=== PATIENT | female | born 1985 | race Two or more races ===

== ENCOUNTER 2019-04-01 13:28 | Emergency (ER) | payer MEDICAID ==
[~2019-04-01] VITALS: Ht 152.4 cm; Wt 90.7 kg
--- NOTE | 2019-04-01 13:50 | NUR ---
ED Nurse Note: PT WALKED IN TO ER TODAY FROM HOME. AOX4. PT STATES SHE IS 5 WEEKS WHICH WAS CONFIRMED BY PT'S OB, DR. WONG. PT STATES LMP WAS SOMETIME IN FEBRUARY BUT IS UNSURE OF THE EXACT DATE. PT C/O LOWER ABDOMINAL CRAMPING, PAIN 6/10 WELL VAGINAL SPOTTING X THIS AM. PT DENIES CLOTS.
--- NOTE | 2019-04-01 13:58 | Emergency Room Report ---
History of Present Illness General Chief Complaint: Complications Source: Patient Present Illness HPI 33-year-old female , A1, presents with 5 weeks of now with vaginal spotting prior to arrival, she endorses moderate abdominal cramps that come and go, no aggravating leaving factors, no shortness of breath, she does feel some nausea, no vomiting, patient presents for evaluation. She does not know her blood type, she sees an PSYCHOTHERAPIST she had a 4-week ultrasound that showed a . Allergies: Coded Allergies: No Known Allergies (Unverified , 04/01/19) Patient History Past Medical History: see triage record Last Menstrual Period: 02/21/19 Now: Yes Reviewed Nursing Documentation: PMH: Agreed; PSxH: Agreed Nursing Documentation-PMH Past Medical History: No History, Except For Hx Asthma: Yes Review of Systems All Other Systems: negative except mentioned in HPI Physical Exam Vital Signs Date Time Temp Pulse Resp B/P (MAP) Pulse Ox O2 Delivery O2 Flow Rate FiO2 04/01/19 13:40 98.4 82 18 113/73 (86) 96 Room Air Sp02 EP Interpretation: reviewed, normal General Appearance: well appearing, no apparent distress, alert Head: normocephalic, atraumatic Eyes: bilateral eye PERRL, bilateral eye EOMI ENT: uvula midline, moist mucus membranes Neck: supple, thyroid normal, supple/symm/no masses Respiratory: lungs clear, no respiratory distress, no retraction, no accessory muscle use Cardiovascular #1: normal peripheral pulses, regular rate, rhythm, no edema, no gallop, no murmur Gastrointestinal: non tender, soft, no guarding, no rebound Musculoskeletal: normal inspection Neurologic: alert, oriented x3 Psychiatric: mood/affect normal Skin: no rash, warm/dry Medical Decision Making Diagnostic Impression: Primary Impression: Complication of Additional Impression: UTI (urinary tract infection) in in first trimester ER Course Patient With vaginal spotting, possible ectopic versus implantation bleeding, labs unremarkable, ultrasound unremarkable, patient in no acute distress, patient was given cephalexin for UTI, return precautions were discussed, follow- up with PSYCHOTHERAPIST She is O+ for blood type, no indications for RhoGam Laboratory Tests Test 04/01/19 14:14 04/01/19 15:00 Urine Color Yellow Urine Appearance Slightly cloudy Urine pH 6 (4.5-8.0) Urine Specific [place] 1.020 (1.005-1.035) Urine Protein 1+ (NEGATIVE) H Urine Glucose (UA) Negative (NEGATIVE) Urine Ketones Negative (NEGATIVE) Urine Blood 2+ (NEGATIVE) H Urine Nitrite Negative (NEGATIVE) Urine Bilirubin Negative (NEGATIVE) Urine Urobilinogen Normal MG/DL (0.0-1.0) Urine Leukocyte Esterase 3+ (NEGATIVE) H Urine RBC 2-4 /HPF (0 - 2) H Urine WBC 5-10 /HPF (0 - 2) H Urine Squamous Epithelial Cells Few /LPF (NONE/OCC) Urine Bacteria Moderate /HPF (NONE) H Urine Mucus Moderate /LPF (NONE/OCC) H White Blood Count 12.8 K/UL (4.8-10.8) H Red Blood Count 4.55 M/UL (4.20-5.40) Hemoglobin 13.9 G/DL (12.0-16.0) Hematocrit 39.2 % (37.0-47.0) Mean Corpuscular Volume 86 FL (80-99) Mean Corpuscular Hemoglobin 30.5 PG (27.0-31.0) Mean Corpuscular Hemoglobin Concent 35.5 G/DL (32.0-36.0) Red Cell Distribution Width 10.7 % (11.6-14.8) L Platelet Count 323 K/UL (150-450) Mean Platelet Volume 5.5 FL (6.5-10.1) L Neutrophils (%) (Auto) 68.9 % (45.0-75.0) Lymphocytes (%) (Auto) 24.2 % (20.0-45.0) Monocytes (%) (Auto) 5.7 % (1.0-10.0) Eosinophils (%) (Auto) 0.7 % (0.0-3.0) Basophils (%) (Auto) 0.5 % (0.0-2.0) Prothrombin Time 10.0 SEC (9.30-11.50) Prothrombin Time INR 0.9 (0.9-1.1) PTT 30 SEC (23-33) Sodium Level 136 MMOL/L (136-145) Potassium Level 3.9 MMOL/L (3.5-5.1) Chloride Level 102 MMOL/L (98-107) Carbon Dioxide Level 22 MMOL/L (21-32) Anion Gap 12 mmol/L (5-15) Blood Urea Nitrogen 12 mg/dL (7-18) Creatinine 0.6 MG/DL (0.55-1.30) Estimate Glomerular Filtration Rate > 60 mL/min (>60) Glucose Level 73 MG/DL (74-106) L Calcium Level 9.0 MG/DL (8.5-10.1) Total Bilirubin 0.3 MG/DL (0.2-1.0) Aspartate Amino Transferase (AST) 18 U/L (15-37) Alanine Aminotransferase (ALT) 19 U/L (12-78) Alkaline Phosphatase 63 U/L (46-116) Total Protein 8.2 G/DL (6.4-8.2) Albumin 3.5 G/DL (3.4-5.0) Globulin 4.7 g/dL Albumin/Globulin Ratio 0.7 (1.0-2.7) L Lipase 180 U/L (73-393) Human Chorionic Gonadotropin, Quant 29098 mIU/mL (1-6) H CT/MRI/US Diagnostic Results CT/MRI/US Diagnostic Results : Impression Procedure: US OB 1st Trimester Indication: Pelvic pain and light vaginal bleeding, positive test Technique: Transabdominal and transvaginal images of the pelvis. Doppler interrogation of the bilateral ovaries Comparison: none Findings: The uterus measures 10.5 cm in length by 4.8 cm AP. Within the endometrium, there is a gestational sac. This demonstrates a pole with a crown-rump length of 9 mm, corresponding to an estimated gestational age of 6 weeks 6 days. There is positive heart activity, heart rate 150 bpm. No subchorionic hemorrhage demonstrated. No myometrial abnormality. The left ovary measures 2.5 cm in length. The right ovary measures 3.1 cm in length. Both ovaries demonstrate normal flow signal on Doppler imaging There are small cervical nabothian cysts incidentally noted. No free cul-de-sac fluid Impression: 6 weeks 6 days, by crown-rump length measurement, single live intrauterine . No unusual features Cervical nabothian cysts incidentally noted Negative for adnexal mass Dictated By: Javi Vergara MD Electronically Signed By: Javi Vergara MD Signed Date/Time 04/01/19 0681 CC: Lefty Villafana MD Last Vital Signs Date Time Temp Pulse Resp B/P (MAP) Pulse Ox O2 Delivery O2 Flow Rate FiO2 04/01/19 13:40 98.4 82 18 113/73 (86) 96 Room Air Disposition: HOME, SELF-CARE Condition: Stable Scripts Cephalexin* (CEPHALEXIN*) 500 Mg Tablet 500 MG ORAL EVERY 6 HOURS, #40 CAP Prov: Lefty Villafana MD 04/01/19 Referrals: [facility] Patient Instructions: and Urinary Tract Infection Additional Instructions: The patient was provided with discharge instructions, notified to follow-up with a primary care doctor and or specialist in the next 24-48 hours, and to return to the ED if they have worsening of their symptoms. Please note that this report is being documented using [employer] technology. This can lead to erroneous entry secondary to incorrect interpretation by the dictating instrument. Lefty Villafana MD Apr 01, 2019 13:58
--- NOTE | 2019-04-01 14:10 | NUR ---
ED Nurse Note: PT DOWN TO US.
[2019-04-01 14:44] LABS: APPEARANCE,URINE SLIGHTLY CLOUDY; BILIRUBIN, URINE NEGATIVE (NEGATIVE); COLOR,URINE YELLOW; GLUCOSE, URINE (UA) NEGATIVE (NEGATIVE); KETONES,URINE NEGATIVE (NEGATIVE); LEUKOCYTE ESTERASE ,URINE 3+ (NEGATIVE); NITRITE,URINE NEGATIVE (NEGATIVE); PH,URINE 6 (4.5-8.0); PROTEIN,URINE 1+ (NEGATIVE); UROBILINOGEN,URINE NORMAL MG/DL (0.0-1.0)
[2019-04-01 15:25] LABS: BASOPHILS % (AUTO) 0.5 % (0.0-2.0); EOSINOPHILS % (AUTO) 0.7 % (0.0-3.0); HEMATOCRIT 39.2 % (37.0-47.0); HEMOGLOBIN 13.9 G/DL (12.0-16.0); LYMPHOCYTES % (AUTO) 24.2 % (20.0-45.0); MEAN CORPUSCULAR VOLUME 86 FL (80-99); MONOCYTES % (AUTO) 5.7 % (1.0-10.0); NEUTROPHILS % (AUTO) 68.9 % (45.0-75.0); PLATELET COUNT 323 K/UL (150-450); RED BLOOD COUNT 4.55 M/UL (4.20-5.40); RED CELL DISTRIBUTION WIDTH 10.7 % (11.6-14.8); WHITE BLOOD COUNT 12.8 K/UL (4.8-10.8)
[2019-04-01 15:29] LABS: INR 0.9 (0.9-1.1)
[2019-04-01 15:34] LABS: ANION GAP 12 mmol/L (5-15); BLOOD UREA NITROGEN 12 mg/dL (7-18); CARBON DIOXIDE 22 MMOL/L (21-32); CHLORIDE 102 MMOL/L (98-107); CREATININE 0.6 MG/DL (0.55-1.30); POTASSIUM 3.9 MMOL/L (3.5-5.1); SODIUM 136 MMOL/L (136-145)
[2019-04-01 15:38] LABS: ALANINE AMINOTRANSFERASE 19 U/L (12-78); ALBUMIN 3.5 G/DL (3.4-5.0); ALBUMIN/GLOBULIN RATIO 0.7 (1.0-2.7); ALKALINE PHOSPHATASE 63 U/L (46-116); ASPARTATE AMINO TRANSFERASE 18 U/L (15-37); BILIRUBIN,TOTAL 0.3 MG/DL (0.2-1.0)
[2019-04-01] MEDS ORDERED: cefTRIAXone 1 GM in NS 55 ML IVPB ONE (16:30)
--- NOTE | 2019-04-01 16:56 | Diagnostic Imaging Report ---
Indication: Pelvic pain and light vaginal bleeding, positive test Technique: Transabdominal and transvaginal images of the pelvis. Doppler interrogation of the bilateral ovaries Comparison: none Findings: The uterus measures 10.5 cm in length by 4.8 cm AP. Within the endometrium, there is a gestational sac. This demonstrates a pole with a crown-rump length of 9 mm, corresponding to an estimated gestational age of 6 weeks 6 days. There is positive heart activity, heart rate 150 bpm. No subchorionic hemorrhage demonstrated. No myometrial abnormality. The left ovary measures 2.5 cm in length. The right ovary measures 3.1 cm in length. Both ovaries demonstrate normal flow signal on Doppler imaging There are small cervical nabothian cysts incidentally noted. No free cul-de-sac fluid Impression: 6 weeks 6 days, by crown-rump length measurement, single live intrauterine . No unusual features Cervical nabothian cysts incidentally noted Negative for adnexal mass
[2019-04-01] MEDS ORDERED: CEPHALEXIN500 M1 ORAL (17:36)
--- NOTE | 2019-04-01 17:38 | NUR ---
ED Nurse Note: PT LAYING PEACEFULLY IN BED IN NAD. AOX4. PRESCRIPTION AND DISCHARGE PAPERWORK EXPLAINED TO PT. PT VERBALIZES UNDERSTANDING AND ALL QUESTIONS ANSWERED. PRESCRIPTION AND DISCHARGE PAPERWORK GIVEN TO PT, IV AND ID WRISTBAND REMOVED. PT WALKED OUT OF ER WITH STEADY GAIT AND ALL BELONGINGS.
[2019-04-01 17:40] VITALS: BP 118/74
== END 2019-04-01 17:41 | disposition home or self-care (01) ==
LOC: EMR 14:33
DX: O26.851 Spotting complicating pregnancy, first trimester (principal); O23.41 Unspecified infection of urinary tract in pregnancy, first trimester; Z3A.01 Less than 8 weeks gestation of pregnancy; N75.0 Cyst of Bartholin's gland
CPT/HCPCS: 36415; 76801; 80053; 81003; 83690; 84702; 85025; 85610; 85730; 86850; 86900; 86901; 87086; 96365; 99284; J0696